=== PATIENT | female | born 1955 | race Caucasian/White ===

== ENCOUNTER 2020-06-27 15:54 | Outpatient (REF) | payer OTHER, SELFPAY | END 2020-06-27 15:55 | disposition home or self-care (01) | LOC: HO.LNP 15:54 | PROVIDERS: Visit Provider Internal Medicine | DX: Z20.822 Contact with and (suspected) exposure to COVID-19 (principal) | CPT/HCPCS: U0003 ==

== ENCOUNTER 2020-09-08 09:13 | Outpatient (REF) | payer OTHER, SELFPAY ==
--- NOTE | ~2020-09-08 | MM_ITS ---
EXAMINATION: MM SCREENING DIGITAL BREAST TOMOSYNTHESIS, BILATERAL CLINICAL INFORMATION: Screening. Asymptomatic. The lifetime risk of breast cancer based on the Tyrer-Cuzick Model is 5%. COMPARISON: Mammography: September 03, 2019 and studies dating back to December 11, 2013 TECHNIQUE: Digital breast tomosynthesis is performed in both the craniocaudal and mediolateral oblique views along with computer-aided detection (CAD). Synthesized 2D images are generated from the tomosynthesis. FINDINGS: The breasts are almost entirely fatty (ACR BI-RADS breast composition Category a). There are no significant masses, abnormal calcifications, or other abnormalities. MM/MM tomosynthesis screening BI IMPRESSION: There are no significant changes from prior study. ASSESSMENT: BI-RADS 1: Negative RECOMMENDATION: Routine annual mammography screening. This patient's information was entered into a reminder system with a target due date for their next mammogram.
== END 2020-09-08 09:14 | disposition home or self-care (01) ==
LOC: HO.MAMMO 09:13
PROVIDERS: Visit Provider Internal Medicine
DX: Z12.31 Encounter for screening mammogram for malignant neoplasm of breast (principal)
CPT/HCPCS: 77063; 77067

== ENCOUNTER 2020-10-14 07:13 | Day surgery (SDC) | payer OTHER, SELFPAY ==
[2020-10-11 13:23] VITALS: BMI 31.4
--- NOTE | 2020-10-13 09:12 | HO.ANESPROP2 ---
HPI - Anesthesia Eval Consult details Narrative: 64yo F for Colonoscopy PMFSH Active Problems Active Problems: All Active Problems (Updated 10/11/20 @ 13:25 by Varsha Reilly) Lipoma (Acute) Past Medical History Medical History (Updated 10/11/20 @ 13:25 by Varsha Reilly) Arthritis Asthma Elevated cholesterol Surgical History Surgical History (Updated 10/11/20 @ 13:25 by Varsha Reilly) H/O colonoscopy Social History Social History (Updated 10/11/20 @ 13:26 by Varsha Reilly) Smoking Status: Never smoker Use of substances other than those prescribed or required for medical reasons: No Have you been hit, kicked, punched, or otherwise hurt by someone within the past year? If so, by whom?: No Are you DNR?: No Advance Directives Information Provided: No Meds Allergies Allergy/AdvReac Type Severity Reaction Status Date / Time shellfish derived Allergy Intermediate Hives Verified 10/11/20 13:21 Aetgpdr-Bvg-Nus Reductase Allergy Unknown Unknown Verified 10/11/20 13:21 Inhibitor Home Medications Medication Instructions Recorded Confirmed Last Taken Type ezetimibe 10 mg PO DAILY 10/11/20 10/11/20 Unknown History loratadine [Claritin] 10 mg PO DAILY PRN 10/11/20 10/11/20 Unknown History multivitamin 1 tab PO DAILY 10/11/20 10/11/20 Unknown History Exam Exam Date and Time: October 13, 2020 0912 Height,Weight and Vital Signs: Height 5 ft 4 in Weight 83.007 kg Assessment and Plan Assessment Anesthesia Assessment: Chart Reviewed
[2020-10-14 07:48] VITALS: BP 148/64; PULSE 75; RESP 18; TEMP 36.4; O2SAT 98
[2020-10-14] MEDS: Lactated Ringers 1,000 ML 100 ML IVCONT (08:06)
--- NOTE | 2020-10-14 09:22 | PM.OP ---
Brief Operative Note Date of Service: 10/14/20 Pre-op diagnosis: Screening Post-op diagnosis: other (Sane, Diverticulosis, Internal Hemorrhoids) Procedure: Colonoscopy to the cecum and TI Surgeon: Sin Lu Anesthesia: MAC Estimated blood loss (mL): 0 Pathology: none sent Condition: stable Disposition: PACU
[2020-10-14 09:25] VITALS: BP 124/69; PULSE 65; RESP 18; TEMP 36.4; O2SAT 100
--- NOTE | 2020-10-14 10:16 | OP_ITS ---
SURGEON: Sin Lu MD INDICATIONS: The patient presents for evaluation of colorectal cancer screening. Full consent has been obtained from her for this, including risks of bleeding and perforation. PREOPERATIVE DIAGNOSIS: Colorectal cancer screening. POSTOPERATIVE DIAGNOSIS: PROCEDURE PERFORMED: Colonoscopy to the cecum and terminal ileum. ESTIMATED BLOOD LOSS: COMPLICATIONS: ANESTHESIA: Monitored anesthesia care. ASSISTANTS: SPECIMENS: POSTOPERATIVE DIAGNOSES: Colorectal cancer screening, sigmoid diverticulosis, and internal hemorrhoids. DESCRIPTION OF PROCEDURE: The patient was placed in the left lateral decubitus position. The digital rectal exam revealed no abnormalities. The Olympus video pediatric colonoscope was entered into the rectum and advanced easily to the cecum. Once in the cecum, I did identify normal-appearing cecal pouch with appendiceal orifice and a normal-appearing ileocecal valve. The terminal ileum was cannulated and appeared normal. The scope was withdrawn back in the colon. The entire cecum and ileocecal valve appeared normal. The scope was slowly withdrawn assessing all mucosal surfaces carefully. Preparation was excellent. I did not visualize any sign of polyps, colitis, nor angiodysplasia. There was a mild amount of sigmoid diverticulosis. In the rectum, scope was retroflexed visualizing internal hemorrhoids, but no other pathology. The rectal mucosa appeared normal. The scope was straightened and withdrawn from the patient. She tolerated the procedure well and was returned to the recovery area in stable condition. IMPRESSION: 1. Sigmoid diverticulosis. 2. Internal hemorrhoids. PLAN: The patient should undergo repeat colonoscopy in 10 years for further screening. She will otherwise see me on a p.r.n. basis. Sin Lu MD RMW/MODL / [id number]
--- NOTE | 2020-10-14 13:19 | HO.POSTANES ---
Post Anesthesia Evaluation Post Anesthesia Evaluation Vital Signs: Vital Signs Temp Pulse Resp BP Pulse Ox 10/14/20 09:25 97.5 F 65 18 124/69 100 10/14/20 07:48 97.5 F 75 18 148/64 H 98 Anesthesia: Monitored Mental Status: Awake Pain Control: Satisfactory Nausea/Vomiting: None Hydration: Adequate Anesthesia-Related Issues: No Anes. Related Issues
== END 2020-10-14 10:28 | disposition home or self-care (01) ==
PROVIDERS: PCP Internal Medicine; Visit Provider Internal Medicine
PROC: 0DJD8ZZ Inspection of Lower Intestinal Tract, Via Natural or Artificial Opening Endoscopic (ICD-10-PCS; CPT 45378; principal; 2020-10-14 08:20)
DX: Z12.11 Encounter for screening for malignant neoplasm of colon (principal); K57.30 Diverticulosis of large intestine without perforation or abscess without bleeding; K64.8 Other hemorrhoids; J45.20 Mild intermittent asthma, uncomplicated; Z79.899 Other long term (current) drug therapy
CPT/HCPCS: 45378

== ENCOUNTER 2020-11-17 08:32 | Outpatient (REF) | payer OTHER, SELFPAY ==
[2020-11-17 09:34] LABS: MANUAL DIFF FLAG NO
[2020-11-17 10:05] LABS: Basophils Absolute Auto 0.1 X10*3/uL (0.0-0.2); Basophils Percent Auto 1.2 % (0-2); Eosinophils Absolute Auto 0.2 X10*3/uL (0.0-0.4); Eosinophils Percent Auto 3.9 % (0-4); Hematocrit 38.2 % (37-47); Hemoglobin 12.9 g/dl (12.0-16.0); Imm Gran Abs Auto 0.02 X10*3/uL (0.00-0.03); Imm Gran Pct Auto 0.5 % (0.0-0.4); Lymphocytes Absolute Auto 1.3 X10*3/uL (1.2-4.9); Mean Corpuscular HGB Conc 33.8 g/dl (31.0-35.0); Mean Corpuscular Hemoglobin 33.2 pg (27.0-33.0); Mean Corpuscular Volume 98.5 fL (80-98); Mean Platelet Volume 10.9 fL (9.4-12.3); Monocytes Absolute Auto 0.4 X10*3/uL (0.1-1.2); Monocytes Percent Auto 10.1 % (2-11); Neutrophils Absolute Auto 2.4 X10*3/uL (2.0-8.3); Neutrophils Percent Auto 55.3 % (45-73); Platelet Count 232 X10*3/uL (160-400); Red Blood Count 3.88 X10*6/uL (4.20-5.50); Red Cell Distribution Width 11.8 % (11.0-16.0); White Blood Count 4.3 X10*3/uL (4.8-10.8)
[2020-11-17 10:17] LABS: Alanine Aminotransferase 23 U/L (0-31); Albumin Level 4.3 g/dL (3.5-5.0); Alkaline Phosphatase 76 U/L (39-117); Anion Gap 12 (12-20); Aspartate Amino Transferase 20 U/L (5-31); Bilirubin Total 0.8 mg/dL (0.0-1.0); Blood Urea Nitrogen 15 mg/dL (9-16); Calcium 9.4 mg/dL (8.4-10.2); Carbon Dioxide 26 mmol/L (22-29); Chloride 107 mmol/L (96-108); Cholesterol 249 mg/dL; Estimated Glomerular Filt Rate > 60; Glucose Fasting 99 mg/dL (60-99); HDL Cholesterol 54 mg/dL; LDL Cholesterol Calculated 165 mg/dl; Potassium 4.8 mmol/L (3.3-5.1); Sodium 140 mmol/L (135-145); Total Protein 6.7 g/dL (6.5-8.0); Triglycerides 153 mg/dL
== END 2020-11-17 08:33 | disposition home or self-care (01) ==
LOC: HO.LAB 08:32
PROVIDERS: PCP Internal Medicine; Visit Provider Internal Medicine
DX: E78.00 Pure hypercholesterolemia, unspecified (principal); J30.1 Allergic rhinitis due to pollen
CPT/HCPCS: 36415; 80053; 80061; 85025

== ENCOUNTER 2020-12-27 15:32 | Outpatient (REF) | payer OTHER, SELFPAY ==
[2020-12-29 05:31] LABS: Lyme Abs Screen <0.90 index
== END 2020-12-27 15:33 | disposition home or self-care (01) ==
LOC: HO.LAB 15:32
PROVIDERS: PCP Internal Medicine; Visit Provider Internal Medicine
DX: T14.8XXA Other injury of unspecified body region, initial encounter (principal); W57.XXXA Bitten or stung by nonvenomous insect and other nonvenomous arthropods, initial encounter
CPT/HCPCS: 36415; 86617; 86618

== ENCOUNTER 2021-04-12 09:57 | Outpatient (REF) | payer OTHER, SELFPAY ==
[2021-04-12 11:54] LABS: Cholesterol 245 mg/dL; HDL Cholesterol 53 mg/dL; LDL Cholesterol Calculated 165 mg/dl; Triglycerides 139 mg/dL
== END 2021-04-12 09:58 | disposition home or self-care (01) ==
LOC: HO.LAB 09:57
PROVIDERS: PCP Internal Medicine; Visit Provider Internal Medicine
DX: E78.00 Pure hypercholesterolemia, unspecified (principal)
CPT/HCPCS: 36415; 80061

== ENCOUNTER → 2021-04-25 07:57 | Outpatient (REF) | payer OTHER, SELFPAY ==
--- NOTE | 2021-04-25 | CA_ITS ---
Acquisition Time: 2021-04-25 08:02:17 Total Exercise Time: 00:06:00 Test Indications: CP, SOB Medications: SEE CHART Protocol: AYLA Max HR: 146 BPM 95% of Pred: 153 BPM Max BP: 184/050 mmHG Max Work Load: 7.0 METS PT EXERCISED ON STD AYLA PROTOCOL FOR 6 MIN THRU STAGE 2. MAX HR 146-95%MAX. SOME FATIGUE. 2MM ST DEP IN INF/LAT LEADS. NO C/O CP,SOME SOB LIKE BRONCHOSPASM.WILL REVIEW WITH CARDIOLOGY. Referred By: Braxton Owens Overread By: CYNHTIA OWENS MD
== END ==
LOC: HO.CARD 07:57
PROVIDERS: Visit Provider Internal Medicine
DX: I25.119 Atherosclerotic heart disease of native coronary artery with unspecified angina pectoris (principal)
CPT/HCPCS: 93017

== ENCOUNTER → 2021-06-07 12:20 | Outpatient (BNVA) | payer OTHER, SELFPAY | PROVIDERS: PCP Internal Medicine; Referring Provider Internal Medicine; Visit Provider Internal Medicine | DX: R94.39 Abnormal result of other cardiovascular function study (principal); R07.2 Precordial pain; R06.02 Shortness of breath | CPT/HCPCS: 93005 ==

== ENCOUNTER → 2021-07-31 08:29 | Outpatient (REF) | payer OTHER, SELFPAY ==
--- NOTE | ~2021-07-31 | NM_ITS ---
EXERCISE MYOCARDIAL PERFUSION STUDY INDICATION: Chest pain, assess for coronary disease and ischemia TECHNIQUE: The patient was brought in for an exercise perfusion study on 07/31/2021. Patient performed exercise as per Huy protocol and was injected 30 mCi of sestamibi once target heart rate was achieved. Images were obtained using the SPECT gamma camera interlaced with the gating device. Images were obtained in supine position. Resting perfusion study was performed on 08/01/2021. Patient was administered 30 mCi of sestamibi intravenously at rest. Images were then obtained in supine position. Total DLP 108mGy-cm. Images were processed with the software and compared side to side in short axis, horizontal long axis and vertical long axis views. FINDINGS: Raw images were reviewed. The stress perfusion study showed diminished tracer uptake in the apical anterior wall. There is improvement with CT attenuation correction and hence could be from soft tissue attenuation artifact. The gated study shows normal LV systolic function with calculated LVEF of 71%. LV cavity is normal in size. The gated study shows normal wall thickening and contraction of segments. Resting study shows minimally decreased tracer uptake in the apical anterior wall. There is also seen with CT attenuation correction. Gating at rest reveals normal wall motion with ejection fraction at 62%. The findings are consistent with fixed apical anterior defect that could be from soft tissue attenuation artifact. NM/NM cardiolite stress test IMPRESSION: 1. Myocardial perfusion imaging study shows no clear evidence of any ischemia or infarction. Suspected soft tissue attenuation artifact in the apical anterior wall. 2. Gated LVEF is 71% during stress and 62% during rest. 3. Transient ischemic dilatation not present. EKG component of the test reported separately.
--- NOTE | 2021-07-31 08:31 | CA_ITS ---
Acquisition Time: 2021-07-31 09:38:21 Total Exercise Time: 00:05:00 Test Indications: Abnormal Treadmill Test Medications: LORATADINE EZITIMIBE Protocol: AYLA Max HR: 142 BPM 92% of Pred: 153 BPM Max BP: 204/058 mmHG Max Work Load: 7.0 METS Exercise stress test with exercise 5 min of Ayla protocol, with mild sob, no chest discomfort, with isolated PVC, with hypertensive response to exercise with max BP 204/ 58, with significant artifact during exercise and at peak, without EKG changes meeting criteria for ischemia at 28 sec of recovery and remainder of recovery. Nuclear images pending. Test reviewed with Dr Garcia. Referred By: Cam Manley Overread By: MARIBEL TATE
== END ==
LOC: HO.CARD 08:29
PROVIDERS: PCP Internal Medicine; Visit Provider Internal Medicine
DX: R07.2 Precordial pain (principal)
CPT/HCPCS: 78452; 93017; A9500

== ENCOUNTER → 2021-08-04 08:33 | Outpatient (REF) | payer OTHER, SELFPAY ==
--- NOTE | 2021-08-04 08:41 | CA_ITS ---
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 The visually estimated ejection fraction is between 60-65%. Spectral Doppler is indicative of a normal filling pattern. Right Ventricle Normal right ventricular cavity size and systolic function. Atria The left atrium is likely dilated. Interatrial shunt cannot be excluded. The right atrium is normal in size. Aortic Valve Normal aortic valve structure and function. There is no aortic valve stenosis. There is no aortic valve regurgitation. Mitral Valve There is mild anterior mitral leaflet thickening. There is mild mitral annular calcification. There is trace mitral valve regurgitation. There is no mitral valve stenosis. Pulmonic Valve The pulmonic valve was not well visualized. Tricuspid Valve Likely normal tricuspid valve structure and function. There is trace tricuspid valve regurgitation. The right ventricular systolic pressure is normal. The right ventricular systolic pressure is 18 mmHg. Normal right atrial pressure. There is no evidence of pulmonary hypertension. Great Vessels All visible segments of the aorta are normal in size. The pulmonary artery was not well visualized. Venous The inferior vena cava is normal in size and collapses greater than 50% with inspiration. Pericardium/Pleural There is no evidence of pericardial effusion. Prior Study Comparison no previous study in the last 5 years for comparison Measurements 2D Linear Measurements IVSd: 0.97 0.6-0.9/0.6-1.0 cm LVIDd: 4.30 3.9-5.3/4.2-5.9 cm LVIDd Index: 2.30 2.4-3.2/2.2-3.1 cm/m2 LVIDs: 2.53 2.0-3.6 cm LVPWd: 0.88 0.7-1.1 cm Ao Root: 3.00 2.1-3.5 cm LA Diam: 3.40 2.7-3.8/3.0-4.0 cm LAIDs Index: 1.82 1.5-2.3 cm/m2 LV Mass: 158.64 67-162/88-224 g LV Mass Index: 84.83 43-95/49-115 g/m2 LVOT Diam: 2.00 3.0+(-)1.3 cm 2D Systolic Function EF 4C: 66.10 >55% EF 2C: 65.00 >55% EF BiP: 66.20 >55% Mitral Valve MV Pk E: 0.96 MV PK A: 0.64 MV Decel Time: 226.00 E/A: 1.50 E'Lateral: 10.80 E'Medial: 7.62 E/E' Med: 12.50 E/E' Lat: 8.80 PHT: 66.00 MVA PHT: 3.33 Decel Sebastian: 4.22 Aortic Valve AoV Pk Antoni: 1.30 AoV Mn Antoni: 0.92 AoV VTI: 0.33 AoV Pk Grad: 7.00 Aov Mn Grad: 4.00 CLYDE Cont.VTI: 2.46 LVOT LVOT Pk Antoni: 1.09 LVOT Mn Antoni: 0.71 LVOT VTI: 0.26 LVOT Pk Grad: 5.00 LVOT Mn Grad: 2.00 LVOT Diam: 2.00 LVOT Area: 3.14 Diastolic Function MV Pk E: 0.96 MV Pk A: 0.64 E/A: 1.50 E'Medial: 7.62 E/E' Med: 12.50 E' Laterial: 10.80 E/E' Lat: 8.80 Right Ventricle TAPSE (mm): 22.40 TVS' Antoni: 11.50 Tricuspid Valve TR Pk Antoni: 1.94 TR Pk Grad: 15.00 RA Press: 3.00 RVSP: 18.00 Great Vessels Aorta Ao Root-2D: 3.00 2.0-3.7 cm Ao Asc: 3.00 2.1-3.4 cm Ao Arch: 3.20 Updated in Other Vendor System with Status of Final Arun Garcia MD electronically signed on 08/05/2021 12:00:59 PM with status of Final
== END ==
LOC: HO.CARD 08:33
PROVIDERS: PCP Internal Medicine; Visit Provider Internal Medicine
DX: R06.02 Shortness of breath (principal)
CPT/HCPCS: 93306

== ENCOUNTER → 2021-08-08 14:43 | Outpatient (BNVA) | payer OTHER, SELFPAY | PROVIDERS: PCP Internal Medicine; Referring Provider Internal Medicine; Visit Provider Internal Medicine ==

== ENCOUNTER 2022-06-07 19:16 | Emergency (ER) | payer OTHER, SELFPAY ==
[2022-06-07 19:20] VITALS: BP 106/79; PULSE 59; RESP 16; TEMP 36.6; O2SAT 100
--- NOTE | 2022-06-07 19:24 | ED.GENADULT ---
HPI - General Adult General Chief complaint: Fall <DIA Breaux - Last Filed: 06/11/22 12:53> Stated complaint: fell ?right shoulder dislocation <DIA Breaux - Last Filed: 06/11/22 12:53> Time Seen by Provider: 06/07/22 20:12 <DIA Breaux - Last Filed: 06/11/22 12:53> Source: patient <Maryann Petersen MD - Last Filed: 06/08/22 01:55> Mode of arrival: ambulatory <Maryann Petersen MD - Last Filed: 06/08/22 01:55> Limitations: no limitations <Maryann Petersen MD - Last Filed: 06/08/22 01:55> History of Present Illness HPI narrative: Patient comes to the emergency room complaining of right shoulder pain. Patient states that she accidentally slipped and started having right-sided shoulder pain. Patient states it hurts too much to even move her arm. Patient denies hitting her head or losing consciousness. Patient denies being on blood thinners. <Maryann Petersen MD - Last Filed: 06/08/22 01:55> Related Data Home medications: Home Medications Medication Instructions Recorded Confirmed ezetimibe 10 mg tablet 10 mg PO DAILY 10/11/20 12/20/21 multivitamin 1 tab PO DAILY 10/11/20 12/20/21 loratadine 10 mg tablet (Claritin) 10 mg PO DAILY Allergy Symptoms 06/07/21 12/20/21 metronidazole 0.75 % topical cream appl topical 06/07/21 12/20/21 Previous Rx's Medication Instructions Recorded amlodipine 2.5 mg tablet (Norvasc) 2.5 mg PO DAILY #90 tabs 12/20/21 ibuprofen 600 mg tablet 600 mg PO TID PRN pain #20 tabs 06/08/22 oxycodone 5 mg tablet 5 mg PO BID PRN pain #6 tabs 06/08/22 <DIA Breaux - Last Filed: 06/11/22 12:53> Allergies/adverse reactions: Allergies Allergy/AdvReac Type Severity Reaction Status Date / Time shellfish derived Allergy Intermediate Hives Verified 12/20/21 13:44 Amehzej-PNY-FrX Reductase Allergy Unknown Unknown Verified 12/20/21 13:44 Inhibitor [Mmfwsdl-Dkm-Qri Reductase Inhibitor] <DIA Breaux - Last Filed: 06/11/22 12:53> Review of Systems Review of Systems: Constitutional : No Weight loss, No Fever, No Chills, No Night Sweats, No Fatigue, No Malaise ENT/Mouth : No Hearing loss, No Ear Pain, No Nasal Congestion, No Sinus Pain, No Hoarseness, No sore throat, No Rhinorrhea, No Swallowing Difficulty Eyes: No Eye Pain, No Swelling, No Redness, No Foreign Body, No Discharge, No Vision Changes Cardiovascular : No Chest Pain, No SOB, No Dyspnea on Exertion, No Orthopnea, No Edema, No Palpitations Respiratory : No Cough, No Sputum, No Wheezing, No Smoke Exposure, No Dyspnea Gastrointestinal : No Nausea, No Vomiting, No Diarrhea, No Constipation, No abdominal Pain, No Hematochezia, No Melena Genitourinary : no irregular bleeding, No Dysuria, No Urinary Frequency, No Hematuria, No Urinary Incontinence, No Urgency, No Flank Pain, No Urinary Flow Changes, No Hesitancy Musculoskeletal : Complaining of right shoulder pain Skin : No Skin Lesions, No rash Neuro : No Weakness, No Numbness, No Paresthesias, No Loss of Consciousness, No Dizziness, No Headache Psych : No Anxiety/Panic, No Depression, No SI/HI/AH/VH, No Social Issues, Heme/Lymph: No Bruising, No Bleeding,No Lymphadenopathy Endocrine : No Polyuria, No Polydipsia, No Temperature Intolerance <Maryann Petersen MD - Last Filed: 06/08/22 01:55> FOR[facility]LY [facility] Past Medical History Medical History: Medical History Arthritis Asthma Elevated cholesterol <DIA Breaux - Last Filed: 06/11/22 12:53> Surgical History: Surgical History H/O colonoscopy <DIA Breaux - Last Filed: 06/11/22 12:53> Family History Family History: Family History Brother Myocardial infarct Father CAD (coronary artery disease) Pacemaker Atrial fibrillation Mother CAD (coronary artery disease) Atrial fibrillation <DIA Breaux - Last Filed: 06/11/22 12:53> Social History Social History: Social History Alcohol intake: current Alcohol intake frequency: a few times a month Patient Tobacco Use Status: Never used Tobacco Smoked in Last 30 Days: No Use of substances other than those prescribed or required for medical reasons: No Advance Directives: No Advance Directives Information Provided: No <DIA Breaux - Last Filed: 06/11/22 12:53> Physical Exam ED Vital Signs: Vital Signs - 24 hr 06/07/22 19:20 06/07/22 21:00 06/07/22 21:20 Temperature 97.9 F 97.8 F Pulse Rate 59 66 Respiratory Rate 16 22 H 22 H Blood Pressure 106/79 152/67 H Pulse Oximetry 100 99 Oxygen Delivery Method Room Air Room Air 06/07/22 21:29 06/08/22 00:16 Temperature 98.6 F 98.0 F Pulse Rate 65 63 Respiratory Rate 22 H 17 Blood Pressure 142/61 H 114/58 L Pulse Oximetry 97 97 Oxygen Delivery Method Room Air Room Air BMI result Body Mass Index 30.0 <DIA Breaux - Last Filed: 06/11/22 12:53> Vital Signs - 24 hr 06/07/22 19:20 06/07/22 21:00 06/07/22 21:20 Temperature 97.9 F 97.8 F Pulse Rate 59 66 Respiratory Rate 16 22 H 22 H Blood Pressure 106/79 152/67 H Pulse Oximetry 100 99 Oxygen Delivery Method Room Air Room Air 06/07/22 21:29 06/08/22 00:16 Temperature 98.6 F 98.0 F Pulse Rate 65 63 Respiratory Rate 22 H 17 Blood Pressure 142/61 H 114/58 L Pulse Oximetry 97 97 Oxygen Delivery Method Room Air Room Air BMI result Body Mass Index 30.0 <Maryann Petersen MD - Last Filed: 06/08/22 01:55> Const Other: Appearance: Alert. Oriented X3. No acute distress. Eyes: Pupils equal, round and reactive to light. ENT: Pharynx normal. Neck: Normal inspection. Neck supple. No lymph nodes noted. No crepitus CVS: Normal heart rate and rhythm. Pulses normal. Normal S1 and S2 Respiratory: No respiratory distress. Breath sounds normal. No Wheezing. No rales Abdomen: Soft and nontender. No rigidity. No distention. Skin: Skin warm and dry. Normal skin color. Normal skin turgor. Extremities: No lower extremity edema. There is deformity to the right shoulder, seems dislocated Neuro: Oriented X 3. No motor deficit. No sensory deficit. Moving all extremities. No slurred speech. CN 2 through 12 grossly intact Psych: calm, cooperative, normal affect <Maryann Petersen MD - Last Filed: 06/08/22 01:55> Course Course Course Narrative: RME: patient presents to the ED for Right shoulder pain. patient fell into wall and hit shoulder. THinks its disclocation. Shoulder xray ordered. Neuro and vascular exam of extremities is intact. Decrease motor exam due shoulder pain. <DIA Breaux - Last Filed: 06/11/22 12:53> RME: patient presents to the ED for Right shoulder pain. patient fell into wall and hit shoulder. THinks its disclocation. Shoulder xray ordered. Neuro and vascular exam of extremities is intact. Decrease motor exam due shoulder pain. I reviewed the x-rays, my impression: Anterior dislocation. I discussed with the patient that we can do local lidocaine injections to help with the pain and reduce the shoulder versus other sedation. Patient opted for lidocaine IM. Patient was also given IM morphine which did not help for the pain, then 1 dose of IM Dilaudid and p.o. Ativan. The shoulder was reduced successfully, patient tolerated well the procedure. Patient was given a sling. Patient instructed to follow-up with Orthopedics. Shoulder x-ray status post reduction: My impression, successfully reduced <Maryann Petersen MD - Last Filed: 06/08/22 01:55> Medications Administered Discontinued Medications Generic Name Dose Route Start Last Admin Trade Name Ljq PRN Reason Stop Dose Admin Hydromorphone HCl 1 mg 06/07/22 21:17 06/07/22 21:20 Hydromorphone Hcl 1 Mg/Ml Syringe IM 06/07/22 21:18 1 mg ONCE ONE Administration Protocol Lidocaine HCl 20 ml 06/07/22 20:45 06/07/22 21:22 Lidocaine Hcl 2 % Mpf 5 Ml Vial INFILTRATI 06/07/22 20:46 20 ml ONCE ONE Administration Lorazepam 2 mg 06/07/22 20:16 06/07/22 20:42 Lorazepam 1 Mg Tablet PO 06/07/22 20:17 2 mg ONCE ONE Administration Morphine Sulfate 4 mg 06/07/22 20:16 06/07/22 20:42 Morphine Sulfate 4 Mg/Ml Cartridge IM 06/07/22 20:17 4 mg ONCE ONE Administration Protocol <DIA Breaux - Last Filed: 06/11/22 12:53> Medications Administered Discontinued Medications Generic Name Dose Route Start Last Admin Trade Name Freq PRN Reason Stop Dose Admin Hydromorphone HCl 1 mg 06/07/22 21:17 06/07/22 21:20 Hydromorphone Hcl 1 Mg/Ml Syringe IM 06/07/22 21:18 1 mg ONCE ONE Administration Protocol Lidocaine HCl 20 ml 06/07/22 20:45 06/07/22 21:22 Lidocaine Hcl 2 % Mpf 5 Ml Vial INFILTRATI 06/07/22 20:46 20 ml ONCE ONE Administration Lorazepam 2 mg 06/07/22 20:16 06/07/22 20:42 Lorazepam 1 Mg Tablet PO 06/07/22 20:17 2 mg ONCE ONE Administration Morphine Sulfate 4 mg 06/07/22 20:16 06/07/22 20:42 Morphine Sulfate 4 Mg/Ml Cartridge IM 06/07/22 20:17 4 mg ONCE ONE Administration Protocol <Maryann Petersen MD - Last Filed: 06/08/22 01:55> Discharge Plan Discharge Clinical Impression: Dislocated shoulder <DIA Breaux - Last Filed: 06/11/22 12:53> Patient Disposition: Home, Self-Care <DIA Breaux - Last Filed: 06/11/22 12:53> Instructions: Shoulder Dislocation (ED) <DIA Breaux - Last Filed: 06/11/22 12:53> Additional Instructions: Please follow-up with your primary care physician tomorrow. If you have any worsening or new symptoms, please return to the emergency room or call 911 <DIA Breaux - Last Filed: 06/11/22 12:53> Prescriptions: New oxycodone 5 mg tablet 5 mg PO BID PRN (Reason: pain) Qty: 6 0RF Rx Instructions: Partial Fill upon patient request. ibuprofen 600 mg tablet 600 mg PO TID PRN (Reason: pain) Qty: 20 0RF No Action multivitamin Tablet 1 tab PO DAILY ezetimibe 10 mg tablet 10 mg PO DAILY loratadine [Claritin] 10 mg tablet 10 mg PO DAILY metronidazole 0.75 % cream topical amlodipine [Norvasc] 2.5 mg tablet 2.5 mg PO DAILY Qty: 90 3RF <DIA Breaux - Last Filed: 06/11/22 12:53> Interventions: ED Discharge Assessment Last Done: 06/08/22 01:59 <DIA Breaux - Last Filed: 06/11/22 12:53> Discharge Date/Time: 06/08/22 02:00 <DIA Breaux - Last Filed: 06/11/22 12:53>
--- NOTE | 2022-06-07 20:13 | ECG_ITS ---
Test Reason : FALL Blood Pressure : / mmHG Vent. Rate : 066 BPM Atrial Rate : 066 BPM P-R Int : 188 ms QRS Dur : 084 ms QT Int : 404 ms P-R-T Axes : 059 049 047 degrees QTc Int : 423 ms Normal sinus rhythm Normal ECG When compared with ECG of 29-APR-2010 01:19, No significant change was found Referred By: Maryann Petersen Electronically Signed By:Alexx Gee
[2022-06-07] MEDS: Morphine Sulfate 4 MG/ML CARTRIDGE IM (20:42)
[2022-06-07] MEDS: LORazepam 1 MG TABLET 2 MG PO (20:42)
--- NOTE | 2022-06-07 20:45 | PC.NURSE ---
patient a&o, pt medicated with pain meds and ativan per order, pts rt arm has + csm/pulses but is noted to be cool to touch, pharmacy was called for lidocaine missing med and they were speaking with dr moore about the order, will continue to monitor
[2022-06-07 21:00] VITALS: BP 152/67; PULSE 66; RESP 22; TEMP 36.6; O2SAT 99
--- NOTE | 2022-06-07 21:04 | PC.NURSE ---
Addendum entered by Sky Jarrett 06/07/22 21:12: Pt is a/o x5. Original Note: Pt's V/S are stable, Pt presented with a dearraged arm d/t a fall. pt's denies loosing conscious, she is not bleeding and family is at bedside. Pt was medicated and re-position.
[2022-06-07 21:20] VITALS: RESP 22
[2022-06-07] MEDS: HYDROmorphone HCl 1 MG/ML SYRINGE IM (21:20)
[2022-06-07] MEDS: Lidocaine HCl 2 % MPF 5 ML VIAL 20 ML INFILTRATI (21:22)
[2022-06-07 21:29] VITALS: BP 142/61; PULSE 65; RESP 22; TEMP 37; O2SAT 97
[2022-06-08 00:16] VITALS: BP 114/58; PULSE 63; RESP 17; TEMP 36.7; O2SAT 97
== END 2022-06-08 02:00 | disposition home or self-care (01) ==
PROVIDERS: Emergency Provider Emergency Medicine; PCP Internal Medicine
DX: S43.004A Unspecified dislocation of right shoulder joint, initial encounter (principal); W01.0XXA Fall on same level from slipping, tripping and stumbling without subsequent striking against object, initial encounter; Y93.9 Activity, unspecified; Y92.9 Unspecified place or not applicable; Y99.9 Unspecified external cause status
CPT/HCPCS: 23650; 73020; 73030; 93005; 96372; 99284; 99285; J1170; J2270

== ENCOUNTER 2022-09-20 09:10 | Outpatient (REF) | payer OTHER, SELFPAY ==
[2022-09-20 10:24] LABS: MANUAL DIFF FLAG NO
[2022-09-20 10:43] LABS: Basophils Absolute Auto 0.1 X10*3/uL (0.0-0.2); Basophils Percent Auto 0.9 % (0-2); Eosinophils Absolute Auto 0.2 X10*3/uL (0.0-0.4); Eosinophils Percent Auto 4.1 % (0-4); Hematocrit 39.8 % (37.0-47.0); Hemoglobin 13.8 g/dl (12.0-16.0); Imm Gran Abs Auto 0.01 X10*3/uL (0.00-0.03); Imm Gran Pct Auto 0.2 % (0.0-0.4); Lymphocytes Absolute Auto 1.5 X10*3/uL (1.2-4.9); Lymphocytes Percent Auto 27.3 % (20-40); Mean Corpuscular HGB Conc 34.7 g/dl (31.0-35.0); Mean Corpuscular Hemoglobin 33.5 pg (27.0-33.0); Mean Corpuscular Volume 96.6 fL (80.0-98.0); Mean Platelet Volume 11.2 fL (9.4-12.3); Monocytes Absolute Auto 0.5 X10*3/uL (0.1-1.2); Monocytes Percent Auto 9.6 % (2-11); Neutrophils Absolute Auto 3.3 x10*3/uL (2.0-8.3); Neutrophils Percent Auto 57.9 % (45-73); Platelet Count 256 X10*3/uL (160-400); Red Blood Count 4.12 X10*6/uL (4.20-5.50); Red Cell Distribution Width 11.7 % (11.0-16.0); White Blood Count 5.6 X10*3/uL (4.8-10.8)
[2022-09-20 10:51] LABS: Alanine Aminotransferase 19 U/L (0-31); Albumin Level 4.4 g/dL (3.5-5.0); Alkaline Phosphatase 87 U/L (39-117); Anion Gap 14 (12-20); Aspartate Amino Transferase 19 U/L (5-31); Bilirubin Total 0.9 mg/dL (0.0-1.0); Blood Urea Nitrogen 17 mg/dL (9-16); Calcium 9.5 mg/dL (8.4-10.2); Carbon Dioxide 27 mmol/L (22-29); Chloride 104 mmol/L (96-108); Cholesterol 265 mg/dL; Estimated Glomerular Filt Rate > 60; Glucose Fasting 95 mg/dL (60-99); HDL Cholesterol 58 mg/dL; LDL Cholesterol Calculated 183 mg/dl; Potassium 5.1 mmol/L (3.3-5.1); Sodium 140 mmol/L (135-145); Total Protein 6.9 g/dL (6.5-8.0); Triglycerides 124 mg/dL
== END 2022-09-20 09:11 | disposition home or self-care (01) ==
LOC: HO.10HDL 09:10
PROVIDERS: Visit Provider Internal Medicine
DX: Z00.00 Encounter for general adult medical examination without abnormal findings (principal)
CPT/HCPCS: 36415; 80053; 80061; 85025

== ENCOUNTER 2022-11-19 16:00 | Outpatient (RCR) | payer OTHER, SELFPAY ==
--- NOTE | 2022-06-25 11:51 | MHC.PT.EP ---
[facility] [place] Office [place] [facility] [place] Office [address] Eche[address]ria [address] [phone] F: [phone] F: [phone] F: [phone] F: [phone] Physical Therapy Plan of Care Date of Evaluation: Date of Surgery: Diagnosis: s/p R shoulder dislocation Assessment: Patient is a pleasant 66 y.o. female rferred to PT by Dr. Braxton Bryant MD with Dx of R shoulder pain after R shoulder dislocation. Patient impairments include pain, limited ROM, weakness, reduced sensation ulnar nerve distribution. Patient current functional limitations are reaching, grabbing anything, bathing, dressing, eating/cooking, lift/carry purse or groceries. Patient will benefit from skilled PT to address aforementioned impairments and functional limitations to meet established goals. Frequency and Duration: The patient will be seen 2x/week for 4 weeks Short Term Goals: 2 weeks Patient demonstrates consistency and independence with HEP to self manage symptoms. Patient is able to wean off sling safely at home (predictable environments). Chief Librarian Circulation Department Goals: 4 weeks Patient demonstrates increased R shoulder flexion AROM 150 degrees to reach to wash her hair. Patient demonstrates increased R shoulder flexion strength 4-/5 to be able to use R arm to eat and cook. Treatment Plan: Modalities to reduce pain, spasms and effusion. Manual therapy to restore motion and function. Therapeutic exercise to improve strength and flexibility. Neuromuscular re-education for posture and balance. Therapeutic activities to return to functional activities of daily living. Electronically signed by: Rivas Maradiaga, PT, DPT Please sign and return to therapist. Thank you for your referral.
== END 2022-11-19 17:12 | disposition home or self-care (01) ==
LOC: HO.PT 16:00
PROVIDERS: PCP Internal Medicine; Visit Provider Internal Medicine
DX: S43.004D Unspecified dislocation of right shoulder joint, subsequent encounter (principal)
CPT/HCPCS: 97110; 97140; 97161; 97530

== ENCOUNTER 2023-01-02 13:39 | Outpatient (AMB) | payer OTHER, SELFPAY ==
--- NOTE | 2023-01-02 13:41 | A.OFFVIS_ITS ---
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 To recall, she was initially referred because of an abnormal stress test. However, it did not seem strongly positive upon our review. Any case, she was having some atypical chest pains. She underwent further workup. This included echocardiogram, as well as calcium scoring CT scan. Overall, testing was unremarkable and the calcium score is actually 0. She has a history of high LDLs but not able tolerate statins and on Zetia for the same. Also has hypertension. On a small dose of amlodipine BP is are much better. Nonsmoker. Strong family history of coronary disease. Overall, since last seen she is actually doing pretty good. [facility] Medical History (Updated 06/09/22 @ 00:00 by Mariann Lisa) Arthritis Asthma Elevated cholesterol Surgical History (Updated 01/02/23 @ 13:44 by Mckenzie Arthur) H/O colonoscopy Hx of rotator cuff surgery Family History Brother Myocardial infarct Father CAD (coronary artery disease) Pacemaker Atrial fibrillation Mother CAD (coronary artery disease) Atrial fibrillation Social History Alcohol intake: current Alcohol intake frequency: a few times a month Patient Tobacco Use Status: Never used Tobacco Review of Systems Const Denies weakness ENT Denies dizziness Card Denies chest pain, Denies chest pain with activity, Denies syncope, Denies rapid heart rate, Denies pedal edema, Denies edema, Denies leg edema, Denies lightheadedness, Denies palpitations, Denies dyspnea, Denies dyspnea on exertion and Denies orthopnea Resp Denies cough, Denies dyspnea and Denies dyspnea on exertion GI Denies hematochezia and Denies change in stool character Musc Denies abnormal gait, Denies muscle cramps, Denies muscle weakness, Denies numbness, Denies radiating pain into limb and Denies tingling Neuro Denies abnormal gait, Denies dizziness, Denies syncope, Denies numbness, Denies tingling and Denies weakness Endo Denies palpitations Physical Exam Vital Signs: Last Vital Signs Pulse 74 01/02/23 13:42 BP 126/82 01/02/23 13:42 BMI result Body Mass Index 30.3 Const General: comfortable and no acute distress Orientation/consciousness: patient oriented x3 HEENT Other: Unremarkable Head: Yes normal to inspection Neck Neck: Yes normal visual inspection Chest Chest palpation & inspection: normal inspection of the chest Resp Auscultation: clear to auscultation bilaterally Cardio Palpation: normal PMI Heart sounds: S1 normal heart sound present, S2 normal heart sound present, no gallops, no murmurs and no rubs GI Palpation (GI): Soft to palpation Back/Spine/Pelvis Other: unremarkable Skin General skin exam: no rashes or lesions noted Neuro General: patient oriented x3 Extrem General: Yes normal to inspection Psych Mental Status: mental status grossly normal Assessment & Plan Assessment & Plan (1) Essential hypertension: Code(s): I10 - Essential (primary) hypertension Plan: Stable. Continue amlodipine. (2) Other and unspecified hyperlipidemia: Code(s): E78.5 - Hyperlipidemia, unspecified Plan: She is unable to take statins. On Zetia. We tried Repatha. Insurance however denied. Subsequently, she underwent calcium scoring CT that shows a calcium score of 0. Previously, myocardial perfusion imaging study was also normal. We discussed about the current situation in detail. Overall, LDL levels are quite high but no good option due to the above. At least lose weight if able. (3) Statin intolerance: Code(s): Z78.9 - Other specified health status Plan: As above, on Zetia. (4) Mitral annular calcification: Code(s): I05.9 - Rheumatic mitral valve disease, unspecified Plan: No significant valvular dysfunction. Plan Follow-up in 2 years. In the interim, she will see her own PCP and also call us with ongoing concerns. Coding Level of Care Code Est Pt Level 3 (41308) Diagnoses Essential hypertension I10 Other and unspecified hyperlipidemia E78.5 Statin intolerance Z78.9 Mitral annular calcification I05.9
[2023-01-02 13:42] VITALS: BP 126/82; PULSE 74; BMI 30.3
== END 2023-01-02 14:13 | disposition home or self-care (01) ==
PROVIDERS: Visit Provider Internal Medicine
DX: I10 Essential (primary) hypertension (principal); E78.5 Hyperlipidemia, unspecified; Z78.9 Other specified health status; I05.9 Rheumatic mitral valve disease, unspecified
CPT/HCPCS: 99213

== ENCOUNTER → 2023-01-02 13:39 | Outpatient (BNVA) | payer OTHER, SELFPAY | PROVIDERS: Visit Provider Internal Medicine ==

== ENCOUNTER 2023-05-27 09:00 | Outpatient (RCR) | payer OTHER, SELFPAY | END 2023-07-23 14:53 | disposition home or self-care (01) | LOC: HO.PT 09:00 | PROVIDERS: Absent Provider Physician Assistant; PCP Internal Medicine; Visit Provider Orthopaedic Surgery | DX: M75.121 Complete rotator cuff tear or rupture of right shoulder, not specified as traumatic (principal) | CPT/HCPCS: 97110; 97112; 97140; 97162 ==

== ENCOUNTER 2023-06-03 10:47 | Outpatient (AMB) | payer OTHER, SELFPAY ==
[2023-06-03 10:48] VITALS: BP 153/64; PULSE 67; BMI 31.4
--- NOTE | 2023-06-03 10:48 | A.OFFVIS_ITS ---
Intake Vital Signs 06/03/23 10:48 Height 5 ft 4 in Weight 183 lb BMI 31.4 BP 153/64 H Blood Pressure Location Rt brachial Position Sitting Pulse 67 Intake Visit Reasons: lipoma Lt back Intake Note: This patient presents for an assessment for lipoma left back. Patient c/o; reports itchiness, discomfort. Manager Environmental Health And Safety Required: No Allergies shellfish derived Allergy (Intermediate, Verified 06/03/23 10:56) Hives Sstvosn-QIG-LpZ Reductase Inhibitor [Ftxeqpp-Bvy-Ovo Reductase Inhibitor] Allergy (Unknown, Verified 06/03/23 10:56) Unknown Medication List - Last Reconciled 06/03/23 by Braxton Balderas MD amlodipine 2.5 mg PO DAILY ezetimibe 10 mg PO DAILY ibuprofen 600 mg PO TID PRN loratadine (Claritin) 10 mg PO DAILY metronidazole 0.75% appl topical multivitamin 1 tab PO DAILY oxycodone 5 mg PO BID PRN HPI lipoma Lt back HPI Details [age] year old female referred for a lipoma of the back. She has noticed this lump for about 3 years now. She thinks that this is increased in size. She was supposed to see a surgeon last year but she had surgery for her shoulder. She denies any skin changes. She says that because of the location of the mass which has increased in size, she has some discomfort along her bra line on the back. She therefore wants this lump removed. [facility] Medical History (Updated 06/03/23 @ 11:11 by Braxton Balderas MD) Lipoma of back Arthritis Elevated cholesterol Asthma Surgical History Hx of rotator cuff surgery H/O colonoscopy Family History Brother Myocardial infarct Father CAD (coronary artery disease) Pacemaker Atrial fibrillation Mother CAD (coronary artery disease) Atrial fibrillation Social History Alcohol intake: current Alcohol intake frequency: a few times a month Patient Tobacco Use Status: Never used Tobacco Review of Systems Const Denies chills and Denies fever(s) Card Denies chest pain, Denies dyspnea and Denies dyspnea on exertion Resp Denies cough, Denies dyspnea and Denies dyspnea on exertion GI Denies hematochezia and Denies change in bowel habits Denies hematuria Musc Denies back pain and Denies limited range of motion Neuro Denies focal weakness and Denies convulsions Psych Denies depression and Denies mood swings Physical Exam Vital Signs: Last Vital Signs Pulse 67 06/03/23 10:48 BP 153/64 H 06/03/23 10:48 BMI result Body Mass Index 31.4 Const General: comfortable and no acute distress Orientation/consciousness: patient oriented x3 Neck Neck: Yes no lymphadenopathy Resp Auscultation: clear to auscultation bilaterally Cardio Rhythm: regular rhythm GI Palpation (GI): Soft to palpation, nontender and no guarding Back/Spine/Pelvis Other: Lipomatous mass in the subcutaneous area, left side of the back below the scapula, about 5 ft 5 cm in widest dimension Neuro General: patient oriented x3 Assessment & Plan Assessment & Plan (1) Lipoma of back: Code(s): D17.1 - Benign lipomatous neoplasm of skin and subcutaneous tissue of trunk Plan: She has this large lipoma on the back as described above. She wants this removed. I explained to her the technique of excision. I reviewed the risks including but not limited to bleeding, infections, poor healing, as well as the benefits and alternatives. In view of the size, we will proceed with lesion under monitored anesthesia care in the hospital She understands what to expect postoperatively. Coding Level of Care Code New Pt Level 3 (11008) Diagnoses Lipoma of back D17.1
== END 2023-06-03 11:17 | disposition home or self-care (01) ==
PROVIDERS: PCP Internal Medicine; Visit Provider Surgery
DX: D17.1 Benign lipomatous neoplasm of skin and subcutaneous tissue of trunk (principal)
CPT/HCPCS: 99203

== ENCOUNTER → 2023-06-03 10:47 | Outpatient (BNVA) | payer OTHER, SELFPAY | PROVIDERS: PCP Internal Medicine; Visit Provider Surgery ==

== ENCOUNTER 2023-07-09 10:05 | Outpatient (REF) | payer OTHER, SELFPAY ==
--- NOTE | ~2023-07-09 | MM_ITS ---
EXAMINATION: BONE DENSITOMETRY CLINICAL INDICATION: Menopause. Screening. COMPARISON: Previous BD dated 09/03/2019 and baseline BD dated 09/08/2007. TECHNIQUE: Using a kaleo DXA System (software version: 13.1) manufactured by [employer], dual-energy x-ray absorptiometry was performed of the lumbar spine and left hip. The images are of good technical quality. Summary results are attached. FINDINGS: LEFT FEMUR, NECK: Current: BMD 0.910 g/cm2, Z-score 0.4, T-score -0.9, normal. Prior: BMD 0.970 g/cm2. Baseline: BMD 1.028 g/cm2. LEFT FEMUR, TOTAL: Current: BMD 1.021 g/cm2, Z-score 1.1, T-score 0.1, normal, 4.3% decrease from previous, 14.6% decrease from baseline (<5% change is not significant). Prior: BMD 1.067 g/cm2. Baseline: BMD 1.195 g/cm2. AP SPINE L1-L4: Current: BMD 1.207 g/cm2, Z-score 1.3, T-score 0.2, normal, 2.4% decrease from previous, 5.1% decrease from baseline (<5% change is not significant). Prior: BMD 1.237 g/cm2. Baseline: BMD 1.272 g/cm2. IDENTIFIED RISK FACTORS: Menopause, family history (parent hip fracture). HISTORY OF FRACTURE: None listed. MEDICATIONS: Multivitamin. MM/XR DEXA axial skeleton IMPRESSION: 1. DIAGNOSIS: Normal bone density based on the lowest T-score value of -0.9 in the femoral neck applying World Health Organization criteria. 2. 10-YEAR FRACTURE RISK PREDICTION, FRAX: According to the guidelines, FRAX calculation should only be performed on patients in the osteopenia bone density category. Therefore, FRAX was not performed on this patient. 3. Treatment Recommendations: NOF guidelines recommend consideration for treatment in postmenopausal women and men age 50 and older presenting with the following: -A hip or vertebral (clinical or morphometric) fracture. -T-score less than or equal to -2.5 at the femoral neck or spine after appropriate evaluation to exclude secondary causes. -Low bone mass at the hip or spine and a 10-year fracture probability by FRAX of greater than or equal to 3% for hip fracture or greater than or equal to 20% for major osteoporotic fracture based on the [place] adapted WHO algorithm. 4. Other Recommendations: All treatment decisions require clinical judgment and consideration of individual patient factors, including patient preferences, comorbidities, previous drug use, risk factors not captured in the FRAX model (e.g. frailty, falls, vitamin D deficiency, increased bone turnover, interval significant decline in bone density) and possible under or overestimation of fracture risk by FRAX. FUTURE SCAN RECOMMENDATION: People with diagnosed cases of osteoporosis or at high risk for fracture should have regular bone mineral density tests. For patients eligible for Medicare, routine testing is allowed once every 2 years. The testing frequency can be increased to one year for patients who have rapidly progressing disease, those who are receiving or discontinuing medical therapy to restore bone mass, or have additional risk factors.
== END 2023-07-09 10:06 | disposition home or self-care (01) ==
LOC: HO.MAMMO 10:05
PROVIDERS: PCP Internal Medicine; Visit Provider Internal Medicine
DX: Z12.31 Encounter for screening mammogram for malignant neoplasm of breast (principal); Z13.820 Encounter for screening for osteoporosis; Z78.0 Asymptomatic menopausal state
CPT/HCPCS: 77063; 77067; 77080

== ENCOUNTER → 2023-07-09 10:30 | Outpatient (BNV) | payer OTHER, SELFPAY | PROVIDERS: PCP Internal Medicine; Visit Provider Radiology Diagnostic Radiology | DX: Z12.31 Encounter for screening mammogram for malignant neoplasm of breast (principal) | CPT/HCPCS: 77063; 77067 ==

== ENCOUNTER 2023-07-12 06:58 | Day surgery (SDC) | payer OTHER, SELFPAY ==
[2023-07-10 10:46] VITALS: BMI 31.4
--- NOTE | 2023-07-11 09:25 | P.CONAN_ITS ---
Documented by User: Tita Murry NP 07/11/23 09:28 HPI - Anesthesia Eval Consult details Narrative: 67yo F for Excision 5.5 cm Lipoma of the back 2021 Cardiac w/u for atypical CP and questionable stress test - all further testing OK. Last [facility] cardiology office visit 12/2022 was stable. OK for 2 year f/u. [facility] Active Problems Active Problems: All Active Problems (Updated 07/10/23 @ 10:46 by Varsha Reilly RN) Essential hypertension (Acute) Mitral annular calcification (Acute) Statin intolerance (Acute) Other and unspecified hyperlipidemia (Acute) Elevated BP without diagnosis of hypertension (Acute) Abnormal stress test (Acute) SOB (shortness of breath) (Acute) Precordial chest pain (Acute) Lipoma (Acute) Lipoma of back (Acute) Past Medical History Medical History (Updated 07/10/23 @ 10:46 by Varsha Reilly RN) Chest pain Mitral annular calcification HTN (hypertension) Lipoma of back Arthritis Elevated cholesterol Asthma Family History Family History Brother Myocardial infarct Father CAD (coronary artery disease) Pacemaker Atrial fibrillation Mother CAD (coronary artery disease) Atrial fibrillation Surgical History Surgical History (Updated 07/10/23 @ 10:38 by Varsha Reilly RN) Hx of rotator cuff surgery H/O colonoscopy Social History Social History Alcohol intake: current Alcohol intake frequency: a few times a month Patient Tobacco Use Status: Never used Tobacco Advance Directives: No Advance Directives Information Provided: Yes Meds Allergies Allergy/AdvReac Type Severity Reaction Status Date / Time shellfish derived Allergy Intermediate Hives Verified 06/03/23 10:56 Rshlzrg-OIS-MnV Reductase Allergy Intermediate cannot Verified 07/10/23 10:45 Inhibitor tolerate [Pdokwyu-Qyj-Hyy Reductase Inhibitor] Home Medications Medication Instructions Recorded Confirmed Last Taken Type ezetimibe 10 mg tablet 10 mg PO DAILY 10/11/20 07/10/23 Unknown History multivitamin 1 tab PO DAILY 10/11/20 07/10/23 Unknown History loratadine 10 mg tablet (Claritin) 10 mg PO DAILY Allergy Symptoms 06/07/21 07/10/23 Unknown History metronidazole 0.75 % topical cream 1 appl topical DAILY 06/07/21 07/10/23 Unknown History Exam Height,Weight and Vital Signs: Height 5 ft 4 in Weight 83.007 kg Narrative Narrative: ECHO 2021 Conclusions: - Essentially normal study with mild mitral annular calcification NM cardiolite stress test 2021 IMPRESSION: 1. Myocardial perfusion imaging study shows no clear evidence of any ischemia or infarction. Suspected soft tissue attenuation artifact in the apical anterior wall. 2. Gated LVEF is 71% during stress and 62% during rest. 3. Transient ischemic dilatation not present. EKG component of the test reported separately. Assessment and Plan Assessment Anesthesia Assessment: Chart Reviewed Documented by User: Trinidad Cunningham MD 07/12/23 07:12 [facility] Past Medical History Medical History (Updated 07/10/23 @ 10:46 by Varsha Reilly RN) Chest pain Mitral annular calcification HTN (hypertension) Lipoma of back Arthritis Elevated cholesterol Asthma Family History Family History Brother Myocardial infarct Father CAD (coronary artery disease) Pacemaker Atrial fibrillation Mother CAD (coronary artery disease) Atrial fibrillation Family history of problems with anesthesia: No Surgical History Surgical History (Updated 07/10/23 @ 10:38 by Varsha Reilyl RN) Hx of rotator cuff surgery H/O colonoscopy History of Problems with Anesthesia: No Social History Social History Alcohol intake: current Alcohol intake frequency: a few times a month Patient Tobacco Use Status: Never used Tobacco Advance Directives: No Advance Directives Information Provided: Yes Meds Allergies Allergy/AdvReac Type Severity Reaction Status Date / Time shellfish derived Allergy Intermediate Hives Verified 06/03/23 10:56 Rgbkxfy-FIM-MfW Reductase Allergy Intermediate cannot Verified 07/10/23 10:45 Inhibitor tolerate [Dwruerf-Sfj-Rux Reductase Inhibitor] Home Medications Medication Instructions Recorded Confirmed Last Taken Type ezetimibe 10 mg tablet 10 mg PO DAILY 10/11/20 07/10/23 Unknown History multivitamin 1 tab PO DAILY 10/11/20 07/10/23 Unknown History loratadine 10 mg tablet (Claritin) 10 mg PO DAILY Allergy Symptoms 06/07/21 07/10/23 Unknown History metronidazole 0.75 % topical cream 1 appl topical DAILY 06/07/21 07/10/23 Unknown History Exam Airway Mallampati Class: III TM Dist: >3cm Neck ROM: Full Assessment and Plan Assessment Anesthesia Assessment: Anesthesia Plan Discussed Final Anesthetic Review Family History of Problems with Anesthesia: No History of Problems with Anesthesia: No NPO: Yes ASA Class: II Final Preanesthetic Review: No Changes in Pt Med Stat, Meds/Allgs Chart Reviewed, Consent Obtained/Reviewed and Anes Risks/Benef Reviewed Patient Risk: Low Procedure Risk: Low Anesthetic Plan Anesthetic Plan: MAC: Disposition: Standard PACU
[2023-07-12] VITALS (7 sets, daily range): BP systolic 98–145; BP diastolic 46–72; PULSE 62–84; RESP 16–18; TEMP 36.6–36.9; O2SAT 97–100; BMI 32.4
[2023-07-12] MEDS: Lactated Ringers 1,000 ML 100 ML IVCONT (07:49)
--- NOTE | 2023-07-12 08:41 | MHC.SHP ---
Pre-Procedural Eval Section A Date of Service: 07/12/23 Section B Chief Complaint: Benign lipomatous neoplasm of skin and subcutaneou Details of Present Illness: has lipomatous mass on back Relevant Social History: None Present Medications: see Short Stay Collaborative assessment Medical History: Significant History (HTN, hyperlipidemia) History of Previous Operations: No relevant previous surgery Allergies: Allergies Allergy/AdvReac Type Severity Reaction Status Date / Time shellfish derived Allergy Intermediate Hives Verified 06/03/23 10:56 Barjfzy-GUS-DmW Reductase Allergy Intermediate cannot Verified 07/10/23 10:45 Inhibitor tolerate [Lwveqat-Uov-Pmw Reductase Inhibitor] Review of Systems Sugical H&P ROS: Negative: Constitution, Cardiovascular, Respiratory, Neurological, Psychiatric, Hem-Onc, Allergic/Immunologic, Gastrointestinal, Genitourinary, Musculoskeletal, Integumentary, Endocrine and Eyes/Ears/Nose/Throat Exam Surgical H&P Exam: Normal: HEENT, Normal: Heart, Normal: Lungs, Normal: Extremities, Normal: Abdomen, Normal: Skin and Normal: Neurological Exam Comment: lipoma on back, to the left of midline Plan Diagnosis/Plan: Unchanged I have reviewed the history and physical and performed a pertinent physical examination on my patient. No changes have occurred unless specified. Time Spent With Patient Time: Total time managing care of this patient today ____ minutes.
--- NOTE | 2023-07-12 09:15 | P.OP_ITS ---
Operative Note Operative Note Date of Service: 07/12/23 Narrative: Preop diagnosis: Lipoma, of the back Postop diagnosis: The same Procedure: Excision of large lipoma of the back under anesthesia Surgeon: Braxton Balderas MD The patient is a 67-year-old female with a large lipoma of the back. This was on the area below the scapula and to the left of the midline. She understood the technique of excision. She wanted this done under anesthesia and this was appropriate because of the large size of the lipoma. She was aware of the risks, benefits, and alternatives She was brought to the operating room. She was placed in sloppy right lateral decubitus position under monitored anesthesia care. A surgical time-out was done. The area of the lipoma was prepped and draped. Lidocaine 1 % was used for local anesthesia. I did not give preop IV antibiotics as this was an ticipated to be a quick procedure. I made the incision using blade 15. This was carried down through the full- thickness of the skin and thick subcutaneous fat until I was able to visualize lipomas tissue. I sharply dissected the lipoma off the rest of the subcutaneous layer with Metzenbaum scissors and electrocautery. We continued to do this circumferentially. I dissected the lipoma off of what appeared to be the fascia on the posterior aspect. This was delivered and sent as specimen. The lipoma measured about 5.5 x 5.5 cm in size I irrigated. I closed the deep subcutaneous layer with Polysorb 3-0 interrupted sutures. Skin closure was achieved with simple interrupted nylon 3-0 sutures. I infiltrated the area with Marcaine 0.5% for postop analgesia Dressings were applied. The procedure was completed. She tolerated procedure well. There were no immediate complications. Initial and final counts of sponges and instruments were correct. Estimated blood loss was about 5 cc. She was then transferred to the recovery room with stable vital signs.
== END 2023-07-12 10:47 | disposition home or self-care (01) ==
PROVIDERS: PCP Internal Medicine; Visit Provider Surgery
PROC: (CPT 21931; principal; 2023-07-12 08:30)
DX: D17.1 Benign lipomatous neoplasm of skin and subcutaneous tissue of trunk (principal); E78.00 Pure hypercholesterolemia, unspecified; I10 Essential (primary) hypertension; J45.909 Unspecified asthma, uncomplicated; Z79.899 Other long term (current) drug therapy; Z79.1 Long term (current) use of non-steroidal anti-inflammatories (NSAID); Z88.8 Allergy status to other drugs, medicaments and biological substances
CPT/HCPCS: 21931; 88304; J0131; J0330; J2250; J2371; J2405; J2704; J2765; J2795; J3010

== ENCOUNTER → 2023-07-12 06:58 | Outpatient (BNV) | payer OTHER, SELFPAY | PROVIDERS: PCP Internal Medicine; Visit Provider Surgery | DX: D17.1 Benign lipomatous neoplasm of skin and subcutaneous tissue of trunk (principal) | CPT/HCPCS: 21931 ==

== ENCOUNTER 2023-07-25 09:29 | Outpatient (AMB) | payer OTHER, SELFPAY ==
--- NOTE | 2023-07-25 09:35 | A.OFFVIS_ITS ---
Intake Intake Visit Reasons: S/p exc lipoma of back Intake Note: This patient presents for a follow-up assessment status post excision lipoma of back. Patient c/o; reports no complaints at this time. Chief Accounting Officer Required: No Accompanied by: Self / Same As Patient Allergies shellfish derived Allergy (Intermediate, Verified 07/25/23 09:41) Hives Ubpwjmv-CSG-PlL Reductase Inhibitor [Hkunjct-Dut-Coe Reductase Inhibitor] Allergy (Intermediate, Verified 07/25/23 09:41) cannot tolerate Medication List - Last Reconciled 07/25/23 by Braxton Balderas MD amlodipine 2.5 mg PO DAILY ezetimibe 10 mg PO DAILY ibuprofen 600 mg PO TID PRN loratadine (Claritin) 10 mg PO DAILY metronidazole 0.75% 1 appl topical DAILY multivitamin 1 tab PO DAILY HPI S/p exc lipoma of back HPI Details She underwent excision of a lipoma from the back last July 12, 2022. She tolerated procedure well. She currently denies significant complaints. [facility] Medical History Chest pain Mitral annular calcification HTN (hypertension) Lipoma of back Arthritis Elevated cholesterol Asthma Surgical History Hx of rotator cuff surgery H/O colonoscopy Family History Brother Myocardial infarct Father CAD (coronary artery disease) Pacemaker Atrial fibrillation Mother CAD (coronary artery disease) Atrial fibrillation Social History Alcohol intake: current Alcohol intake frequency: a few times a month Comment: counts correct Patient Tobacco Use Status: Never used Tobacco Review of Systems Const Denies chills and Denies fever(s) Card Denies chest pain, Denies dyspnea and Denies dyspnea on exertion Resp Denies cough, Denies dyspnea and Denies dyspnea on exertion GI Denies hematochezia and Denies change in bowel habits Denies hematuria Musc Denies back pain and Denies limited range of motion Neuro Denies focal weakness and Denies convulsions Psych Denies depression and Denies mood swings Physical Exam Const General: comfortable and no acute distress Back/Spine/Pelvis Other: Excision site on the back is well healed, sutures intact, no infection Assessment & Plan Assessment & Plan (1) Lipoma of back: Code(s): D17.1 - Benign lipomatous neoplasm of skin and subcutaneous tissue of trunk Plan: Status post excision. I removed her sutures. Her incision is well healed. Her path report shows a lipoma. She can follow up on a p.r.n. basis. Coding Level of Care Code Global (69056) Diagnoses Lipoma of back D17.1
== END 2023-07-25 09:55 | disposition home or self-care (01) ==
PROVIDERS: PCP Internal Medicine; Visit Provider Surgery
DX: D17.1 Benign lipomatous neoplasm of skin and subcutaneous tissue of trunk (principal)
CPT/HCPCS: 99024

== ENCOUNTER → 2023-07-25 09:29 | Outpatient (BNVA) | payer OTHER, SELFPAY | PROVIDERS: PCP Internal Medicine; Visit Provider Surgery ==

== ENCOUNTER 2023-09-12 10:33 | Outpatient (REF) | payer OTHER, SELFPAY ==
[2023-09-12 11:44] LABS: Cholesterol 266 mg/dL (<200); HDL Cholesterol 53 mg/dL (>40); LDL Cholesterol Calculated 178 mg/dL (<100); Triglycerides 176 mg/dL (<150)
== END 2023-09-12 10:34 | disposition home or self-care (01) ==
LOC: HO.LAB 10:33
PROVIDERS: PCP Internal Medicine; Visit Provider Internal Medicine
DX: E78.00 Pure hypercholesterolemia, unspecified (principal)
CPT/HCPCS: 36415; 80061

== ENCOUNTER 2024-07-21 08:51 | Outpatient (REF) | payer OTHER, SELFPAY ==
[2024-07-21 10:23] LABS: MANUAL DIFF FLAG NO
[2024-07-21 10:51] LABS: Basophils Absolute Auto 0.1 X10*3/uL (0.0-0.2); Basophils Percent Auto 1.1 % (0-2); Eosinophils Absolute Auto 0.2 X10*3/uL (0.0-0.4); Eosinophils Percent Auto 3.2 % (0-4); Hemoglobin 13.1 g/dl (12.0-16.0); Imm Gran Abs Auto 0.02 X10*3/uL (0.00-0.03); Imm Gran Pct Auto 0.3 % (0.0-0.4); Lymphocytes Absolute Auto 1.6 X10*3/uL (1.2-4.9); Lymphocytes Percent Auto 26.2 % (20-40); Mean Corpuscular HGB Conc 34.5 g/dl (31.0-35.0); Mean Corpuscular Hemoglobin 33.3 pg (27.0-33.0); Mean Corpuscular Volume 96.7 fL (80.0-98.0); Mean Platelet Volume 10.8 fL (9.4-12.3); Monocytes Absolute Auto 0.6 X10*3/uL (0.1-1.2); Monocytes Percent Auto 9.6 % (2-11); Neutrophils Absolute Auto 3.7 x10*3/uL (2.0-8.3); Neutrophils Percent Auto 59.6 % (45-73); Platelet Count 298 X10*3/uL (160-400); Red Blood Count 3.93 X10*6/uL (4.20-5.50); Red Cell Distribution Width 11.9 % (11.0-16.0); White Blood Count 6.2 X10*3/uL (4.8-10.8)
[2024-07-21 11:19] LABS: Alanine Aminotransferase 22 U/L (0-31); Albumin Level 4.2 g/dL (3.5-5.0); Alkaline Phosphatase 73 U/L (39-117); Anion Gap 16 (12-20); Aspartate Amino Transferase 22 U/L (5-31); Bilirubin Total 0.6 mg/dL (0.0-1.0); Blood Urea Nitrogen 13 mg/dL (9-16); Carbon Dioxide 26 mmol/L (22-29); Chloride 105 mmol/L (96-108); Cholesterol 237 mg/dL (<200); Estimated Glomerular Filt Rate > 60; Glucose Fasting 93 mg/dL (60-99); HDL Cholesterol 52 mg/dL (>40); LDL Cholesterol Calculated 161 mg/dL (<100); Potassium 4.4 mmol/L (3.3-5.1); Sodium 143 mmol/L (135-145); Total Protein 7.1 g/dL (6.5-8.0); Triglycerides 121 mg/dL (<150); Vitamin D 25-OH Total 51.4 ng/mL (>30)
== END 2024-07-21 08:52 | disposition home or self-care (01) ==
LOC: HO.10HDL 08:51
PROVIDERS: Visit Provider Internal Medicine
DX: I10 Essential (primary) hypertension (principal); E78.00 Pure hypercholesterolemia, unspecified
CPT/HCPCS: 36415; 80053; 80061; 82306; 85025

== ENCOUNTER → 2024-07-21 10:00 | Outpatient (BNV) | payer OTHER, SELFPAY | PROVIDERS: PCP Internal Medicine; Visit Provider Internal Medicine | DX: Z12.31 Encounter for screening mammogram for malignant neoplasm of breast (principal) | CPT/HCPCS: 77063; 77067 ==

== ENCOUNTER 2025-01-11 09:11 | Outpatient (AMB) | payer OTHER, SELFPAY ==
--- NOTE | 2025-01-11 09:26 | MHC.OFFVIS ---
Vital Signs 01/11/25 09:27 Height 5 ft 4 in Weight 176 lb 5.917 oz BMI 30.3 BP 128/78 Blood Pressure Location Lt brachial Position Sitting Pulse 62 Pulse Source Monitor Intake Visit Reasons: 1 yr f/up Allergies shellfish derived Allergy (Intermediate, Verified 07/25/23 09:41) Hives Splmqcx-ZPS-FcI Reductase Inhibitor (Rpptdqv-Dbe-Qpx Reductase Inhibitor) Allergy (Intermediate, Verified 07/25/23 09:41) cannot tolerate Medication List - Last Reconciled 01/11/25 by Cam Manley MD amlodipine 2.5 mg PO DAILY ezetimibe 10 mg PO DAILY ibuprofen 600 mg PO TID PRN loratadine (Claritin) 10 mg PO DAILY metronidazole 0.75% 1 appl topical DAILY multivitamin 1 tab PO DAILY HPI Comments Details: Herminia returns for follow-up. To recall, she was initially referred because of an abnormal stress test. However, it did not seem strongly positive upon our review. Any case, she was having some atypical chest pains. She underwent further workup. This included echocardiogram, as well as calcium scoring CT scan. Overall, testing was unremarkable and the calcium score is actually 0. She has a history of high LDLs but not able tolerate statins and on Zetia for the same. Also has hypertension. On a small dose of amlodipine BP is are much better. Nonsmoker. Strong family history of coronary disease. Since last seen, she is actually doing quite well. Rare palpitations but nothing clearly bothersome. No exertional angina or anything truly concerning. [facility] Medical History Chest pain Mitral annular calcification HTN (hypertension) Lipoma of back Arthritis Elevated cholesterol Asthma Surgical History Hx of rotator cuff surgery H/O colonoscopy Family History Brother Myocardial infarct Father CAD (coronary artery disease) Pacemaker Atrial fibrillation Mother CAD (coronary artery disease) Atrial fibrillation Social History Alcohol intake: current Alcohol intake frequency: a few times a month Comment: counts correct Patient Tobacco Use Status: Never used Tobacco Review of Systems Const Denies weakness ENT Denies dizziness Card Denies chest pain, Denies chest pain with activity, Denies syncope, Denies rapid heart rate, Denies pedal edema, Denies edema, Denies leg edema, Denies lightheadedness, Denies palpitations, Denies dyspnea, Denies dyspnea on exertion and Denies orthopnea Resp Denies cough, Denies dyspnea and Denies dyspnea on exertion GI Denies hematochezia and Denies change in stool character Musc Denies abnormal gait, Denies muscle cramps, Denies muscle weakness, Denies numbness, Denies radiating pain into limb and Denies tingling Neuro Denies abnormal gait, Denies dizziness, Denies syncope, Denies numbness, Denies tingling and Denies weakness Endo Denies palpitations Physical Exam Vital Signs: Last Vital Signs Pulse 62 01/11/25 09:27 BP 128/78 01/11/25 09:27 BMI result Body Mass Index 30.3 Const General: comfortable and no acute distress Orientation/consciousness: patient oriented x3 HEENT Other: Unremarkable Head: Yes normal to inspection Neck Neck: Yes normal visual inspection Chest Chest palpation & inspection: normal inspection of the chest Resp Auscultation: clear to auscultation bilaterally Cardio Palpation: normal PMI Heart sounds: S1 normal heart sound present, S2 normal heart sound present, no gallops, no murmurs and no rubs GI Palpation (GI): Soft to palpation Back/Spine/Pelvis Other: unremarkable Skin General skin exam: no rashes or lesions noted Neuro General: patient oriented x3 Extrem General: Yes normal to inspection Psych Mental Status: mental status grossly normal Office Procedures EKG Details: EKG with underlying sinus rhythm at 62/Min; no significant ST-T changes; [place] [address]-[id number], Complete Assessment & Plan Assessment & Plan (1) Essential hypertension: Code(s): I10 - Essential (primary) hypertension Category: Medical Plan: Stable. Continue amlodipine. (2) Other and unspecified hyperlipidemia: Code(s): E78.5 - Hyperlipidemia, unspecified Category: Medical Plan: Statin intolerant. On Zetia. Repatha tried in the past but insurance denied. We will try Praluent. Patient is willing to do that. LDL levels are still quite high. As much as 183 mg/dL in 2022 but currently at 161 mg/dL. Triglycerides 121 mg/dL. She will also attempt weight loss. (3) Statin intolerance: Code(s): Z78.9 - Other specified health status Category: Medical Plan: Plan as above. (4) Mitral annular calcification: Code(s): I05.9 - Rheumatic mitral valve disease, unspecified Category: Medical Plan: Mild mitral annular calcification on the last echocardiogram. No significant valvular dysfunction. Plan Discussion Notes We reviewed her hypercholesterolemia management, including the challenges with insurance coverage for certain medications and the need for regular cholesterol monitoring. We also discussed with the patient about her palpitations but she would like to hold off on any testing at this time. Patient was informed and verbally consented to the use of an ambient scribe for clinic note documentation during this visit. Total time spent including review of data, counseling, documentation, coordination of care-31 minutes. Orders: Orders Lipid Panel 2 Months E78.5 - Hyperlipidemia, unspecified Medications: New alirocumab (Praluent Pen) inject into abdomen, thigh, or upper arm (deltoid muscle); rotate sites 75 mg subcut Q2W 2 mL 5RF E78.5 - Hyperlipidemia, unspecified Patient Instructions: - Continue taking ezetimibe and follow up on insurance for injectable medications. - Schedule a cholesterol test in a few months to check levels. Coding Level of Care Code Est Pt Level 4 (14190) Complex EM visit Add On G2211 Diagnoses Essential hypertension I10 Other and unspecified hyperlipidemia E78.5 Statin intolerance Z78.9 Mitral annular calcification I05.9 CPT Codes EKG - CPT: 82603-Oacvpncvbtzvabcvn, Complete ([id number])
[2025-01-11 09:27] VITALS: BP 128/78; PULSE 62; BMI 30.3
--- OUTSIDE RECORDS SUMMARY | 2025-01-11 10:10 | XMS_ITS | Patient Health Record ---
Author Organization [facility] Address [address] [place] [address] Care Team Providers Care Special Services Supervisor Name Role Phone Braxton Bryant MD Primary Care Provider Laurence Molina Unavailable [phone] Allergies Allergen (clinical drug ingredient) Drug/Non Drug Allergy documented on EMR Reaction Allergy Type Onset Date Status Pollen, mold, animal s (uncoded) Unknown Allergy Active Substance with 4-sldzhwk-9-methylgluta ryl-coenzyme A reductase inhibitor mechanism of action (substance) Statins (uncoded) Unknown Allergy Active Reason For Referral No Information Medications Medication SIG (Take, Route, Fr equency, Duration) Notes Start Date End Date Status Ezetimibe 10 MG 1 tablet Orally Once a day; Duration: 30 day(s) Active Claritin Active Social History Tobacco Use: Social History Observation Description Date Details (start date - stop date) Never Smoker NA - NA Tobacco Use/Smoking Question Answer Notes Are you a: nonsmoker Additional Findings: Tobacco Non-User Aggressive non-smoker Alcohol Screen Question Answer Notes Did you have a drink containing alcohol in the p ast year? Yes Points 0 Interpretation Negative Tobacco use other than smoking: Question Answer Notes Are you an other tobacco user? No Plan Of Treatment No Information Insurance Providers Payer Name Payer Address Payer Phone Subscriber Number Group Number Insured Name Patient Relationship to Insured Coverage Start Date Coverage End Date [employer] [facility] [address] [place] [id number] Herminia Joshi Self - patient is the insured Medical (General) History Medical History History ICD Code Arthritis asthma CAD (Cholesterol) Cataracts Warts Measles Mumps Chicken pox Surgical History Surgery Date(Month/Year)
--- OUTSIDE RECORDS SUMMARY | 2025-01-11 10:10 | XMS_ITS | Patient Health Record ---
Author Organization [facility] Address [address] [place] [address] Care Team Providers Care President And Chief Operating Officer Name Role Phone Annette (RETIRED) Braxton ELAINE Primary Care Provide r Sin Grant Unavailable [phone] Allergies Allergen (clinical drug ingredient) Drug/Non Drug Allergy documented on EMR Reaction Allergy Type Onset Date Status Dust Mite Mixed Allergen Ext Unknown Drug Allergy Active Seasonale Unknown Drug Allergy Active mold (uncoded) Unknown Allergy Activ e Dogs (uncoded) Unknown Allergy Activ e Cats (uncoded) Unknown Allergy Activ e Reason For Referral No Information Medications Medication SIG (Take, Route, Fr equency, Duration) Notes Start Date End Date Status Ezetimibe 10 MG Orally Acti ve Claritin Active Multivitamin Active Elderberry Active Tylenol PRN Active Advil PRN Active Immunizations Vaccine Route Administration Date Status Comme nts Influenza Unknown 03/30/2020 Administered Social History Tobacco Use: Social History Observation Description Date Details (start date - stop date) Never Smoker NA - NA Tobacco Use/Smoking Question Answer Notes Patient is a nonsmoker Alcohol Screen Question Answer Notes Did you have a drink containing alcohol in the p ast year? No Points 0 Interpretation Negative Section Notes: Noinsmoker; no sig alcohol Problems Problem Type SNOMED Code ICD Code Onset Dates Problem Status W/U Status Risk Notes Problem Encounter for screening for malignant neoplasm of colon (Z12.11) Active confirmed Problem Preprocedural examination ([id number]) Preprocedural examination (Z01.818) Active confirmed Plan Of Treatment Future Test Test Name Order Date COLONOSCOPY 09/07/2020 Insurance Providers Payer Name Payer Address Payer Phone Subscriber Number Group Number Insured Name Patient Relationship to Insured Coverage Start Date Coverage End Date [facility] [employer] [address] [place] [address] [id number] JACEY OSPINA Self - patient is the insured Medical (General) History Medical History History ICD Code Hyperlipidemia Allergies Asthma - mild intermittent Arthritis Rosacea Denies VA,DM,CVA,renal disease Neg screening colonoscopy in 2008 Surgical History Surgery Date(Month/Year) Right breast-- fatty tumor
== END 2025-01-11 09:57 | disposition home or self-care (01) ==
LOC: HO.HCS 09:21
PROVIDERS: PCP Internal Medicine; Visit Provider Internal Medicine
DX: I10 Essential (primary) hypertension (principal); E78.5 Hyperlipidemia, unspecified; Z78.9 Other specified health status; I05.9 Rheumatic mitral valve disease, unspecified
CPT/HCPCS: 93010; 99214

== ENCOUNTER → 2025-01-11 09:11 | Outpatient (BNVA) | payer OTHER, SELFPAY | PROVIDERS: PCP Internal Medicine; Visit Provider Internal Medicine | DX: I10 Essential (primary) hypertension (principal) | CPT/HCPCS: 93005 ==

== ENCOUNTER 2025-04-06 08:27 | Outpatient (AMB) | payer OTHER, SELFPAY ==
--- NOTE | 2025-04-06 08:30 | A.OFFPC_ITS ---
Vital Signs 04/06/25 08:35 Height 5 ft 2.52 in Weight 178 lb BMI 32.0 BP 130/62 Blood Pressure Location Lt brachial Position Sitting Respiration 18 Pulse 78 Pulse Source Pulse Oximeter Temp 96.9 F Temp Source Temporal Artery Scan Pulse Oximetry (%) 98 Oxygen Delivery Method Room Air Intake Visit Reasons: DEBRA- Dr. Bryant Security Sales Manager Required: No Accompanied by: Self / Same As Patient Allergies shellfish derived Allergy (Intermediate, Verified 04/06/25 08:32) Hives Reafamf-WCN-RxL Reductase Inhibitor (Tyfhfce-Rzz-Ivg Reductase Inhibitor) Allergy (Intermediate, Verified 04/06/25 08:32) cannot tolerate Medication List - Last Reconciled 04/06/25 by Leo Lei MD amlodipine 2.5 mg PO DAILY evolocumab (Repatha SureClick) 140 mg subcut .2 weeks ezetimibe 10 mg PO DAILY ibuprofen 600 mg PO ONCE PRN loratadine (Claritin) 10 mg PO DAILY metronidazole 0.75% 1 appl topical DAILY multivitamin 1 tab PO DAILY Tobacco use date assessed: 04/06/25 Fall risk assessment: 1 Fall in past year Last assessed Fall Risk: 04/06/25 Dental Screening Dental Screen Date: 04/06/25 Did you have a dental visit in the last 12 months?: Yes Did you have a dental problem in the last 6 months where you did not have access to dental care?: No Was dental information given to patient?: Patient has dentist HPI HPI Comments History of Present Illness Details The patient is a 69-year-old female presenting for a wellness evaluation and chronic disease management. She reports a history of essential hypertension, currently controlled with amlodipine 2.5 mg. The patient inquires whether her condition is categorized as high blood pressure or borderline, but current readings indicate well-controlled levels at 130/62 mmHg. Her prior pressure readings often reached the high 130s, motivating previous medical guidance for tighter control. She is also managing hyperlipidemia with Repatha and ezetimibe 10 mg, following previous insurance challenges in accessing Repatha. The patient's total cholesterol was previously noted at 231 mg/dL with an LDL of 161 mg/dL. Given her strong family history of cardiac disease, her lipid levels are closely monitored, and she recently commenced Repatha therapy three months prior to this visit. The patient reports chronic allergies, managed with loratadine, significantly impacting her quality of life since young adulthood. She experiences severe environmental allergies including reactions to dust, mold, animals, and ragweed. 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 These episodes are triggered by swallowing small amounts of water or food, leading to episodes of feeling that her throat closes and impedes her breathing. The patient manages these episodes through strategies learned in speech therapy and has been previously evaluated by an ear, nose, and throat (ENT) specialist. Medical History: - Essential hypertension - Hyperlipidemia - Allergic rhinitis - Laryngospasm - Allergic reaction to shellfish - Adverse reaction to statins Surgical History: - Right shoulder rotator cuff surgery (d ate unspecified) Medications: - Amlodipine 2.5 mg for hypertension - Repatha 4 mg for hyperlipidemia - Ezetimibe 10 mg for hyperlipidemia - Loratadine for allergic rhinitis - Multivitamin - Metronidazole appointment as needed Family History: - Father with diabetes and hypertension - Parents with heart disease - Half brother and younger brother succu mbed to apparent heart attacks - Brother with complex heart surgery - Youngest sister with thyroid disease Diagnostic Results: - Echocardiogram: Normal (2021) - Total cholesterol: 231 mg/dL - LDL cholesterol: 161 mg/dL - Calcium score: 0 Social History: - Allergic to smoke; non-smoker - Occasional alcohol consumption (approx imately two beers in the past month) - Allergic to shellfish; manages careful ly - Reports safe living environment and fu nctional status appropriate for age [facility] Medical History (Updated 04/06/25 @ 09:08 by Leo Lei MD) Seasonal allergies Family history of heart disease Laryngospasm Hyperlipidemia Chest pain Mitral annular calcification HTN (hypertension) Lipoma of back Arthritis Elevated cholesterol Asthma Surgical History (Updated 03/26/25 @ 15:46 by Sridevi Rocha) Hx of rotator cuff surgery H/O colonoscopy (~10/14/20) Family History Brother Myocardial infarct Father CAD (coronary artery disease) Pacemaker Atrial fibrillation Mother CAD (coronary artery disease) Atrial fibrillation Social History Housing: House Alcohol intake: current Alcohol intake frequency: a few times a month Comment: counts correct Patient Tobacco Use Status: Never used Tobacco e-Cigarette/Vaping Use: Never Used service: No Current occupational status: employed and retired Current occupation: [employer] Questionnaire PHQ-9 Over the last 2 weeks, how often have you been bothered by any of the following problems? 1. Little interest or pleasure in doing things: not at all 2. Feeling down, depressed, or hopeless: not at all 3. Trouble falling or staying asleep, or sleeping too much: not at all 4. Feeling tired or having little energy: not at all 5. Poor appetite or overeating: not at all 6. Feeling bad about yourself - or that you are a failure or have let yourself or your family down: not at all 7. Trouble concentrating on things, such as reading the newspaper or watching television: not at all 8. Moving or speaking so slowly that other people could have noticed. Or the opposite - being so fidgety or restless that you have been moving around a lot more than usual: not at all 9. Thoughts that you would be better off or of hurting yourself in some way: not at all Total score: 0 Depression Screening Interpretation: Negative Depression Screening Done: Yes 31900 - PHQ-9 Billing: Yes Source: Developed by Drs. Sin Nicholas, Anay Hi, Randy Keller and colleagues, with an educational sandra from [employer]. Thrive Questionnaire Date Thrive assessed: 04/06/25 I am a: Patient What is your living situation today?: I have a steady place to live Within the past 12 months, did the food you bought not last and you didn't have the money to get more?: Never true Within the past 12 months, did you worry whether your food would run out before you got money to buy more?: Never true Do you have trouble paying for medicines?: No Do you have trouble getting transportation to medical appointments?: No Do you have trouble paying your heating and electricity bill?: No Do you have trouble taking care of your child, family member or friend?: No Do you have trouble with day-to-day activities such as bathing, preparing meals, shopping, managing finances, etc.?: No Are you currently unemployed and looking for a job?: No Are you interested in more education?: No THRIVE Score: 0 AUDIT C Alcohol Use Questionnaire (AUDIT-C) 1. How often do you have a drink containing alcohol?: 2-4 times a month 2. How many drinks containing alcohol do you have on a typical day when you are drinking?: 1 or 2 3. How often do you have six or more drinks on one occasion?: Never Total Score: 2 Score Reviewed/Action Taken: Yes ZAHRA-7 AMB Questionnaire ZAHRA-7 Date ZAHRA - 7 assessed: 04/06/25 Feeling nervous, anxious, or on edge: 0 = Not at all Not being able to stop or control worryin = Not at all Worrying too much about different things: 0 = Not at all Trouble relaxin = Not at all Being so restless that it is hard to sit still: 0 = Not at all Becoming easily annoyed or irritable: 0 = Not at all Feeling afraid as if something awful might happen: 0 = Not at all Total ZAHRA-7 score (0-4 normal; 5-9 mild; 10-14 moderate; 15-21 severe): 0 Source: Developed by Drs. Sin Nicholas, Anay Hi, Randy Keller and colleagues, with an educational sandra from [employer]. ZAHRA-7 Assessment Billing ZAHRA-7 Assessment Tool: ZAHRA-7 Assessment 17713 Review of Systems Narrative - Constitutional: Denies general symptoms. - Cardiovascular: Denies palpitation or chest pain. - Respiratory: Denies recent dyspnea or cough; acknowledges history of laryngospasm. - Gastrointestinal: Denies gastrointestinal symptoms. - Genitourinary: Reports nocturia consistent with age-related changes. - Musculoskeletal: Denies current pain post rotator cuff surgery. - Neurologic: Denies headaches or vision changes. - Allergy/Immunology: Reports significant environmental allergies. All systems reviewed & are unremarkable except as reviewed in HPI and above Physical exam (Primary Care) Vital Signs: Last Vital Signs Temp 96.9 F 04/06/25 08:35 Pulse 78 04/06/25 08:35 Resp 18 04/06/25 08:35 BP 130/62 04/06/25 08:35 Pulse Ox 98 04/06/25 08:35 Oxygen Delivery Method Room Air 04/06/25 08:35 BMI result Body Mass Index 32.0 Tobacco/Smoking Status: Tobacco use Status Tobacco use date assessed 04/06/25 04/06/25 08:38 Patient Tobacco Use Status Never used Tobacco 04/06/25 08:38 e-Cigarette/Vaping Use Never Used 04/06/25 08:38 PHQ-9: PHQ-9 Score PHQ-9: Total score 0 04/06/25 08:50 Depression Screening Interpretation: Negative Thrive Assessment: Date of Thrive Assessment Date Thrive assessed 04/06/25 04/06/25 08:50 Narrative General: Alert and oriented, Well nourished, No acute distress. Eye: Pupils are equal, round and reactive to light, Intact accommodation, Extraocular movements are intact, Normal conjunctiva, Vision unchanged. HENT: Normocephalic, Atraumatic, Tympanic membranes are clear, Normal hearing, Oral mucosa is moist, No pharyngeal erythema, Ear canals patent. Respiratory: Lungs CTA bilaterally, No wheeze, Respirations are non-labored. Cardiovascular: Regular rate, Regular rhythm, S1 auscultated, S2 auscultated, No murmur, Good pulses equal in all extremities, Normal peripheral perfusion, No edema. Gastrointestinal: Soft, Non-tender, Non-distended, Normal bowel sounds, No organomegaly. Musculoskeletal: Normal range of motion, Normal strength, No tenderness, No swelling, No deformity, Normal gait. Integumentary: Warm, Dry, [address], Intact. Neurologic: Alert, Oriented, Normal sensory, Normal motor function, No focal defects, Cranial Nerves II-XII are grossly intact, Normal deep tendon reflexes. Psychiatric: Cooperative, Appropriate mood & affect, Normal judgment. Coding Level of Care Code New Pt Level 5 (20646) Diagnoses Essential hypertension I10 Other hyperlipidemia E78.49 Hyperlipidemia type: other hyperlipidemia Laryngospasm J38.5 Family history of heart disease Z82.49 Seasonal allergies J30.2 Mitral annular calcification I05.9 Additional Codes ZAHRA-7 Assessment Billing - ZAHRA-7 Assessment Tool: ZAHRA-7 Assessment 82488 ([id number]) PHQ-9 - 99100 - PHQ-9 Billing: Yes ([id number]) Time Spent (min) 60 Assessment & Plan Assessment & Plan (1) Essential hypertension: Comment: - Continue current management with amlodipine 2.5 mg given well-controlled blood pressure readings. Code(s): I10 - Essential (primary) hypertension Category: Medical (2) Hyperlipidemia: Comment: - Continue Repatha and ezetimibe. - Follow up on lab work ordered for cholesterol monitoring to assess treatment effectiveness. Code(s): E78.5 - Hyperlipidemia, unspecified Category: Medical Qualifiers: Hyperlipidemia type: other hyperlipidemia Qualified Code(s): E78.49 - Other hyperlipidemia (3) Laryngospasm: Comment: - Referral to ENT for further evaluation and management. - Consider follow-up speech therapy if symptoms persist. Code(s): J38.5 - Laryngeal spasm Category: Medical (4) Family history of heart disease: Comment: - Strong family history of CVD with multiple members having PR & CV Surgery - Strongly enforced the need to monitor modifiable risk factors and close follow up with cardiology Code(s): Z82.49 - Family history of ischemic heart disease and other diseases of the circulatory system Category: Medical (5) Seasonal allergies: Comment: - Ongoing management with daily loratadine. - Recognize environmental allergies and avoid known triggers. Code(s): J30.2 - Other seasonal allergic rhinitis Category: Medical (6) Mitral annular calcification: Comment: - Seen on ECHO from 2022 Code(s): I05.9 - Rheumatic mitral valve disease, unspecified Category: Medical Plan: Health Maintenance: - Cholesterol monitoring as discussed - Continued avoidance of allergens and management of allergy symptoms - Weight management strategies encouraged to reduce cardiovascular risk Patient was informed and verbally consented to the use of an ambient scribe for clinic note documentation during this visit. Plan I discussed the management strategies for essential hypertension and emphasized the significance of maintaining current blood pressure levels given her family history. Hyperlipidemia was reviewed, and I encouraged compliance with Repatha and ezetimibe while emphasizing follow-up cholesterol testing. I addressed allergies, outlining strategies to control exposure and manage symptoms effectively. Regarding laryngospasm, I recommended seeing an ENT specialist for further evaluation and potential re-engagement in speech therapy. I reinforced the importance of lifestyle modifications, including diet and weight management, to mitigate cardiovascular risks. Orders: Orders TSH reflex Free T4 Today Leo Lei MD Z00.00 - Encounter for general adult medical examination without abnormal findings Hemoglobin A1c Today Leo Lei MD Z00.00 - Encounter for general adult medical examination without abnormal findings Referrals Ear/Nose/Throat Referral Leo Lei MD J38.5 - Laryngeal spasm Medications: Changed From ibuprofen 600 mg PO TID PRN 20 tabs 0RF pain To ibuprofen 600 mg PO ONCE PRN Maryann Petersen MD Patient Instructions: - Continue current medications as prescribed. - Visit the lab for ordered cholesterol and blood sugar tests without fasting. - Follow up with ENT specialist for laryngospasm evaluation. - Maintain adequate management of allergies. - Continue discussing and working on lifestyle changes for weight management. - Call or visit the clinic if symptoms worsen or you have any new concerns.
[2025-04-06 08:35] VITALS: BP 130/62; PULSE 78; RESP 18; TEMP 36.1; O2SAT 98; BMI 32.0
--- OUTSIDE RECORDS SUMMARY | 2025-04-06 08:43 | XMS_ITS | Patient Health Record ---
Author Organization [facility] Address [address] [place] [address] Care Team Providers Care Forcer Maker Name Role Phone Annette (RETIRED) Braxton ELAINE Primary Care Provide r Sin Grant Unavailable [phone] Allergies Allergen (clinical drug ingredient) Drug/Non Drug Allergy documented on EMR Reaction Allergy Type Onset Date Status Seasonale Unknown Drug Allergy Active mold (uncoded) Unknown Allergy Activ e Dogs (uncoded) Unknown Allergy Activ e Cats (uncoded) Unknown Allergy Activ e Dust Mite Mixed Allergen Ext Unknown Drug Allergy Active Reason For Referral No Information [...] Problem Status W/U Status Risk Notes Problem Screening for malignant neoplasm of colon (014164547) Encounter for screening for malignant neoplasm of colon (Z12.11) Active confirmed Problem Preprocedural examination ([id number]) Preprocedural examination (Z01.818) Active confirmed Plan Of Treatment Future Test Test Name Order Date COLONOSCOPY 09/07/2020 Insurance Providers Payer Name Payer Address Payer Phone Subscriber Number Group Number Insured Name Patient Relationship to Insured Coverage Start Date Coverage End Date [facility] [address] [place] [address] [id number] JACEY OSPINA Self - patient is the insured Medical (General) History Medical History History ICD Code Hyperlipidemia Allergies Asthma - mild intermittent Arthritis Rosacea Denies DE,DM,CVA,renal disease Neg screening colonoscopy in 2008 Surgical History Surgery Date(Month/Year) Right breast-- fatty tumor
--- OUTSIDE RECORDS SUMMARY | 2025-04-06 08:43 | XMS_ITS | Patient Health Record ---
Author Organization [facility] Address [address] [place] [address] Care Team Providers Care Gis Programmer Name Role Phone Braxton Bryant MD Primary Care Provider Laurence Molina Unavailable [phone] Allergies Allergen (clinical drug ingredient) Drug/Non Drug Allergy documented on EMR Reaction Allergy Type Onset Date Status Pollen, mold, animal s (uncoded) Unknown Allergy Active Substance with 3-wdnpljm-2-methylgluta ryl-coenzyme A reductase inhibitor mechanism of action [...] Coverage Start Date Coverage End Date [employer] [facility] [address] [place] [id number] Herminia Joshi Self - patient is the insured Medical (General) History Medical History History ICD Code Arthritis asthma CAD (Cholesterol) Cataracts Warts Measles Mumps Chicken pox Surgical History Surgery Date(Month/Year)
== END 2025-04-06 08:57 | disposition home or self-care (01) ==
LOC: HO.HMCHD 08:28
PROVIDERS: PCP Internal Medicine; Visit Provider Student in an Organized Health Care Education/Training Program
DX: I10 Essential (primary) hypertension (principal); E78.49 Other hyperlipidemia; J38.5 Laryngeal spasm; Z82.49 Family history of ischemic heart disease and other diseases of the circulatory system; J30.2 Other seasonal allergic rhinitis; I05.9 Rheumatic mitral valve disease, unspecified

== ENCOUNTER 2025-04-06 08:27 | Outpatient (REF) | payer OTHER, SELFPAY ==
[2025-04-06 13:08] LABS: Cholesterol 164 mg/dL (<200); HDL Cholesterol 53 mg/dL (>40); Triglycerides 120 mg/dL (<150)
== END 2025-04-06 08:28 | disposition home or self-care (01) ==
LOC: HO.10HDL 08:27
PROVIDERS: PCP Internal Medicine; Visit Provider Student in an Organized Health Care Education/Training Program
DX: Z00.00 Encounter for general adult medical examination without abnormal findings (principal); E78.5 Hyperlipidemia, unspecified; I10 Essential (primary) hypertension; J38.5 Laryngeal spasm; E78.49 Other hyperlipidemia; J30.2 Other seasonal allergic rhinitis; I05.9 Rheumatic mitral valve disease, unspecified; Z82.49 Family history of ischemic heart disease and other diseases of the circulatory system; Z79.899 Other long term (current) drug therapy
CPT/HCPCS: 36415; 80061; 83036; 84443; 96127